=== PATIENT | female | born 1985 | race African-American/Black ===

== ENCOUNTER 2021-09-12 06:36 | Emergency (ER) | payer SELFPAY ==
[~2021-09-12] VITALS: Ht 172.7 cm; Wt 75.0 kg
[2021-09-12] MEDS ORDERED: IBUPROFEN 600MG TABLET PO ONE (08:00)
[2021-09-12 08:36] VITALS: BP 135/75
== END 2021-09-12 09:16 | disposition home or self-care (01) ==
LOC: ER 06:36
DX: S09.8XXA Other specified injuries of head, initial encounter (principal); Y08.89XA Assault by other specified means, initial encounter; Y93.89 Activity, other specified; Y92.89 Other specified places as the place of occurrence of the external cause
CPT/HCPCS: 99283

== ENCOUNTER 2025-02-07 20:12 | Emergency (ER) | payer SELFPAY ==
[~2025-02-07] VITALS: Ht 172.7 cm; Wt 82.0 kg
[2025-02-07 20:34] VITALS: O2SAT 100
[2025-02-07 21:20] LABS: BASOPHILS % 0.7 % (0.0-2.0); EOSINOPHILS % 0.8 % (0.0-5.0); HEMATOCRIT. 33.8 % (36.0-48.0); HEMOGLOBIN. 11.4 g/dL (12.0-16.0); LYMPHOCYTES % 36.3 % (20.0-50.0); MEAN CORPUSCULAR HEMOGLOBIN 32.5 pg (28.0-32.0); MEAN CORPUSCULAR HGB CONC 33.8 g/dL (31.0-37.0); MEAN CORPUSCULAR VOLUME 96.2 fL (81.0-99.0); MEAN PLATELET VOLUME 8.8 fl (7.4-10.4); MONOCYTES % 8.6 % (2.0-8.0); NEUTROPHILS % 53.6 % (40.0-76.0); PLATELET 191 x1000/uL (130-400); RED BLOOD CELL COUNT 3.52 mill/uL (4.2-5.4); RED CELL DISTRIBUTION WIDTH 14.3 % (11.6-14.6); WHITE BLOOD COUNT 5.1 x1000/uL (4.5-11.0)
[2025-02-07 21:30] LABS: CHLORIDE 111 mEq/L (98-107); POTASSIUM 3.8 mEq/L (3.5-5.1); SODIUM 143 mEq/L (136-145)
[2025-02-07 21:31] LABS: CALCIUM 9.7 mg/dL (8.7-10.4); CARBON DIOXIDE 28 mEq/L (21-32)
[2025-02-07 21:36] LABS: CREATININE 1.1 mg/dL (0.6-1.0); GLUCOSE 102 mg/dL (70-105); UREA NITROGEN BLOOD 14 mg/dL (9-23)
[2025-02-07 21:38] LABS: ALANINE AMINOTRANSFERASE 9 IU/L (10-49); ALBUMIN 4.2 g/dL (3.2-4.8); ASPARTATE AMINOTRANSFERASE 16 IU/L (<34); BILIRUBIN DIRECT < 0.1 mg/dL (<=3.0)
[2025-02-07 21:39] LABS: BILIRUBIN TOTAL 0.2 mg/dL (0.1-1.0); PROTEIN TOTAL 6.7 g/dL (6.0-8.3)
[2025-02-07 22:13] LABS: HCG SCREEN NEGATIVE
[2025-02-07 22:16] VITALS: TEMP 37; O2SAT 100
[2025-02-07 22:23] VITALS: BP 130/86; PULSE 79; RESP 13
[2025-02-07] MEDS: FAMOTIDINE 20MG TABLET PO ONE (22:23)
[2025-02-07] MEDS: MAGNESIUM/ALUMINUM HYDROXIDE/SIMETHICONE 30ML UDC PO ONE (22:23)
[2025-02-07] MEDS: HYDROCODONE/ACETAMINOPHEN 5/325MG TABLET PO ONE (22:23)
[2025-02-08] MEDS: CYCLOBENZAPRINE 10MG TABLET PO ONE (00:04)
[2025-02-08] MEDS: KETOROLAC 30MG/ML VIAL IM ONE (00:04)
[2025-02-08] MEDS ORDERED: HYDR-4001 MT (00:40)
[2025-02-08] MEDS ORDERED: FAMO-135 MT (00:40)
== END 2025-02-08 00:59 | disposition home or self-care (01) ==
LOC: ER 20:12
DX: G89.29 Other chronic pain (principal); M54.9 Dorsalgia, unspecified; Z88.0 Allergy status to penicillin
CPT/HCPCS: 99285; 72131; 80076; 80048; 84703; 83690; 85025; 36415; 74176; 96372; J1885